=== PATIENT | male | born 2000 | race Caucasian/White ===

== ENCOUNTER 2023-02-23 13:01 | Emergency (ER) | payer SELFPAY ==
[~2023-02-23] VITALS: Ht 193 cm; Wt 67.1 kg
--- NOTE | 2023-02-23 13:06 | NUR ---
The patient's care was reviewed and supervised by JAMARI FITZPATRICK RN.
[2023-02-23 13:11] VITALS: BP 144/71
--- NOTE | 2023-02-23 13:11 | NUR ---
PT. AMB. TO BED 7 W NO DIFFICULTY
[2023-02-23] MEDS ORDERED: KETOROLAC 60 MG/2 ML VIAL IM ONE (13:25)
[2023-02-23] MEDS ORDERED: ONDANSETRON 4 MG ODT PO ONE (13:25)
[2023-02-23] MEDS ORDERED: ONDA8TAB87 PO (13:36)
[2023-02-23] MEDS ORDERED: IBUP-2213 PO (13:36)
--- NOTE | 2023-02-23 13:38 | NUR ---
22 Y/O M BIB SELF C/O STOMACH PAIN 05/08, N/V . VOMITING STARTED AFTER HE ATE SUSHI LAST NIGHT. [facility] OR [facility]
--- NOTE | 2023-02-23 13:53 | NUR ---
Patient discharged with v/s stable. Written and verbal after care instructions given and explained. Patient alert, oriented and verbalized understanding of instructions. Ambulatory with steady gait. All questions addressed prior to discharge. ID band removed. Patient advised to follow up with PMD. Rx of IBUPROFEN, ONDANSETRON HCI given. Opportunity to ask questions provided and answered.
== END 2023-02-23 13:52 | disposition home or self-care (01) ==
LOC: MED 13:01
DX: R10.13 Epigastric pain (principal); R11.2 Nausea with vomiting, unspecified; R50.9 Fever, unspecified; F12.90 Cannabis use, unspecified, uncomplicated
CPT/HCPCS: 96372; 99283; J1885; Q0162